=== PATIENT | male | born 1995 | race Two or more races ===

== ENCOUNTER 2017-04-26 00:24 | Emergency (ER) | payer OTHER ==
[~2017-04-26] VITALS: Ht 175.3 cm; Wt 72.6 kg
--- NOTE | 2017-04-26 00:55 | NUR ---
Patient discharged to home in stable conditon. Written and verbal after care instructions given. Patient verbalizes understanding of instructions.
== END 2017-04-26 00:56 | disposition home or self-care (01) ==
LOC: ER 00:32
DX: S63.104A Unspecified dislocation of right thumb, initial encounter (principal); X58.XXXA Exposure to other specified factors, initial encounter; Y93.89 Activity, other specified; Y92.9 Unspecified place or not applicable; Y99.9 Unspecified external cause status
CPT/HCPCS: A4663